=== PATIENT | male | born 2000 | race Caucasian/White ===

== ENCOUNTER 2019-09-23 12:19 | Emergency (ER) | payer BC ==
[2019-09-23 12:36] VITALS: BP 114/66
--- NOTE | 2019-09-23 12:55 | UC ---
FLU HPI - HPI Summary HPI Summary: 19 year old male with no medications, no PMH presents with cough, productive x 3 -4 days, tactile fever, chills worse at PM, sinus pain, pressure, sore throat past 2 days x 1 week Seen at [facility] monday, given cough medication- no improvement. noted improvement 2 days after symptoms started, but now symptoms continue. Had MOSLEY, resolved. + mild diarrhea, 1/day - History of Current Complaint Chief Complaint: UCGeneralIllness Stated Complaint: COUGH,SWEATS,DIARRHEA Time Seen by Provider: 09/23/19 12:51 Hx Obtained From: Patient Onset/Duration: Sudden Onset, Lasting Weeks - 1 week Severity Initially: Mild Pain Intensity: 0 Pain Scale Used: 0-10 Numeric Associated Signs & Symptoms: Positive: Fever, F/C, Myalgia, Cough, Sore Throat, Nasal Congestion, Diarrhea Related Hx: Possible Flu/Infectious Exposure - Allergy/Home Medications Allergies/Adverse Reactions: Allergies Allergy/AdvReac Type Severity Reaction Status Date / Time Sulfa (Sulfonamide Allergy Rash Verified 09/23/19 12:36 Antibiotics) Home Medications: Home Medications Benzonatate CAP* [Tessalon 100 MG CAP*] 1 tab PO ONCE 09/23/19 [History Confirmed 09/23/19] Cetirizine* [ZyrTEC 10 MG TAB*] 1 tab PO DAILY 09/23/19 [History Confirmed 09/23] guaiFENesin [Mucinex] 1 tab PO ONCE 09/23/19 [History Confirmed 09/23/19] PMH/Surg Hx/FS Hx/Imm Hx Previously Healthy: Yes - Surgical History Surgical History: None - Family History Known Family History: Positive: Non-Contributory - Social History Occupation: Student Alcohol Use: Occasionally Substance Use Type: None Smoking Status (MU): Never Smoked Tobacco Review of Systems All Other Systems Reviewed And Are Negative: Yes Constitutional: Positive: Fever, Chills, Fatigue ENT: Positive: Sore Throat, Nasal Discharge, Sinus Congestion, Sinus Pain/ Tenderness Respiratory: Positive: Cough Gastrointestinal: Positive: Diarrhea Is Patient Immunocompromised?: No Physical Exam Triage Information Reviewed: Yes Appearance: No Pain Distress, Well-Nourished, Ill-Appearing - mild Vital Signs: Initial Vital Signs Temp 97.5 F 09/23/19 12:31 Pulse 86 09/23/19 12:31 Resp 16 09/23/19 12:31 BP 114/66 09/23/19 12:31 Pulse Ox 100 09/23/19 12:31 Vital Signs Reviewed: Yes Eyes: Positive: Conjunctiva Clear ENT: Positive: Pharynx normal, TMs normal, Tonsillar exudate - mild left sided, Sinus tenderness, Uvula midline. Negative: TM bulging, TM dull, TM red, Tonsillar swelling Neck: Positive: Supple, Nontender, No Lymphadenopathy. Negative: Nuchal Rigidity, Enlarged Nodes @ Respiratory: Positive: Chest non-tender, Lungs clear, Normal breath sounds, No respiratory distress, No accessory muscle use. Negative: Crackles, Rhonchi, Stridor, Wheezing Cardiovascular: Positive: RRR, No Murmur Neurological Exam: Normal Psychological Exam: Normal Flu Course/Dx - Course Course Of Treatment: Rapid flu negative Due to prolonged symptoms without improvement, dx'd with likely secondary Sinusitis: - ANtibiotics as directed - Increase fluid intake, rest - Over the counter medications for symptoms such as tylenol, motrin - [facility] if no improvement within 2-3 days - Differential Dx/Diagnosis Differential Diagnosis/HQI/PQRI: Influenza, Upper Respiratory Infection Provider Diagnosis: Sinusitis Discharge ED - Sign-Out/Discharge Documenting (check all that apply): Patient Departure All imaging exams completed and their final reports reviewed: No Studies - Discharge Plan Condition: Good Disposition: HOME Prescriptions: Azithromycin TAB* [Zithromax TAB (Z-MAY) 250 mg #6 tabs] 2 tab PO .TODAY, THEN 1 DAILY #1 may Patient Education Materials: Sinusitis (ED) Referrals: No Primary Care Phys,NOPCP [Primary Care Provider] - Additional Instructions: - ANtibiotics as directed - Increase fluid intake, rest - Over the counter medications for symptoms such as tylenol, motrin - Return or go to [facility] if no improvement within 2-3 days - Billing Disposition and Condition Condition: GOOD Disposition: Home
[2019-09-23 12:57] LABS: Influenza A Molecular NEGATIVE (Negative); Influenza B Molecular NEGATIVE (Negative)
== END 2019-09-23 13:14 | disposition home or self-care (01) ==
LOC: UCCORT 12:19
DX: J32.9 Chronic sinusitis, unspecified (principal); R05 Cough; J02.9 Acute pharyngitis, unspecified; Z88.2 Allergy status to sulfonamides
CPT/HCPCS: 99202; G0463